=== PATIENT | male | born 1975 | race Caucasian/White ===

== ENCOUNTER 2017-12-28 07:43 | Emergency (ER) | payer SELFPAY ==
[~2017-12-28] VITALS: Ht 193 cm; Wt 99.1 kg
[2017-12-28 10:47] VITALS: BP 143/89
== END 2017-12-28 10:50 | disposition home or self-care (01) ==
LOC: EME 07:43
DX: F10.129 Alcohol abuse with intoxication, unspecified (principal); F32.9 Major depressive disorder, single episode, unspecified
CPT/HCPCS: 99281; 99283